=== PATIENT | female | born 1985 | race Hispanic/Latino ===

== ENCOUNTER 2016-08-08 10:46 | Inpatient (IN) | payer OTHER ==
[2016-08-08 10:54] VITALS: BMI 23.6
[2016-08-08] MEDS ORDERED: Sodium Chloride 0.9% 1,000 ML IV STA ×2 (11:16→12:32)
--- NOTE | 2016-08-08 11:27 | ED PDOC ---
HPI:Nausea, Vomiting, Diarrhea Time Seen by Provider: 08/08/16 10:59 Chief Complaint (Nursing): GI Problem Chief Complaint (Provider): Vomiting History Per: Patient History/Exam Limitations: no limitations Onset/Duration Of Symptoms: Days (Today) Current Symptoms Are (Timing): Still Present Additional Complaint(s): Vomiting multiple times. States last few had a blood tinge, mild. Also epigastric pain mild after vomiting, better now. Had a lot of alcohol and a sandwich yesterday. No back pain, lower abd pain, weakness, headaches, dysuria. No chest pain, dyspnea. No diarrhea. States she is very anxious and gets tx for it. Takes xanax as needed for it. Past Medical History Reviewed: Nursing Documentation, Vital Signs Vital Signs: Last Vital Signs Temp 97.8 F 08/08/16 10:53 Pulse 148 H 08/08/16 10:53 Resp 16 08/08/16 10:53 BP 125/75 08/08/16 10:53 Pulse Ox 99 08/08/16 10:53 - Medical History PMH: Anxiety - Surgical History Surgical History: No Surg Hx - Family History Family History: States: Unknown Family Hx - Living Arrangements Living Arrangements: With Family - Social History Current smoker - smoking cessation education provided: No Alcohol: None Drugs: Denies - Home Medications Home Medications: Ambulatory Orders Medication Instructions Recorded No Known Home Med 08/08/16 - Allergies Allergies/Adverse Reactions: Allergies Allergy/AdvReac Type Severity Reaction Status Date / Time No Known Allergies Allergy Verified 08/08/16 12:28 Review of Systems ROS Statement: Except As Marked, All Systems Reviewed And Found Negative Gastrointestinal: Positive for: Nausea, Vomiting, Abdominal Pain, Hematemesis ( trace) Physical Exam - Reviewed Nursing Documentation Reviewed: Yes Vital Signs Reviewed: Yes - Physical Exam Appears: Positive for: Non-toxic, No Acute Distress Head Exam: Positive for: ATRAUMATIC, NORMAL INSPECTION, NORMOCEPHALIC Skin: Positive for: Normal Color, Warm, DRY Eye Exam: Positive for: EOMI, Normal appearance, PERRL ENT: Positive for: Normal ENT Inspection Neck: Positive for: Normal, Painless ROM Cardiovascular/Chest: Positive for: Regular Rate, Rhythm Respiratory: Positive for: CNT, Normal Breath Sounds Gastrointestinal/Abdominal: Positive for: Normal Exam, Bowel Sounds, Soft. Negative for: Tenderness Back: Positive for: Normal Inspection. Negative for: L CVA Tenderness, R CVA Tenderness Extremity: Positive for: Normal ROM. Negative for: Tenderness, Pedal Edema Neurologic/Psych: Positive for: Alert, Oriented - Laboratory Results Result Diagrams: 08/08/16 11:30 08/08/16 11:30 Interpretation Of Abn Labs: 13.2 wbc, bun 31 - ECG O2 Sat by Pulse Oximetry: 99 Pulse Ox Interpretation: Normal - Progress ED Course And Treament: 1248: Stable. AAOx3. Elevated wbc mild, with bun elevated. Will give more fluids. Likely stress reaction. Pt. wants xanax. 1409: Stable. Feels no pain or vomit. Fu with pcp. Tolerated PO. Dehydration. Likely stress reaction with mild elevated wbc. Disposition - Clinical Impression Clinical Impression: Vomiting, Dehydration - Patient ED Disposition Is Patient to be Admitted: No Counseled Patient/Family Regarding: Studies Performed, Diagnosis, Need For Followup - Disposition Referrals: [facility] [Outside] - 08/09/16 Disposition: Routine/Home Disposition Time: 14:11 Condition: STABLE Additional Instructions: Return if not better in 3 days. Instructions: Dehydration (ED), Acute Nausea and Vomiting (ED)
[2016-08-08 11:42] LABS: BASO # 0.1 K/uL (0.0-0.2); BASO % 0.6 % (0.0-2.0); EOS # 0.1 K/uL (0.0-0.7); EOS % 0.5 % (0.0-4.0); HEMATOCRIT 33.3 % (34.0-47.0); LYMPH # 1.9 K/uL (1.0-4.3); LYMPH % 14.1 % (20.0-40.0); MEAN CELL VOLUME 94.9 fl (81.0-99.0); MEAN CORPUSCULAR HEMOGLOBIN 31.9 pg (27.0-31.0); MEAN CORPUSCULAR HGB CONC 33.6 g/dL (33.0-37.0); MEAN PLATELET VOLUME 7.3 fl (7.2-11.7); MONO # 0.8 K/uL (0.0-0.8); MONO % 5.9 % (0.0-10.0); NEUT # 10.4 K/uL (1.8-7.0); NEUT % 78.9 % (50.0-75.0); RED CELL DISTRIBUTION WIDTH 13.5 % (11.5-14.5); WHITE BLOOD COUNT 13.2 K/uL (4.8-10.8)
[2016-08-08 11:47] LABS: ALB/GLOB RATIO 1.5 (1.0-2.1); ALKALINE PHOSPHATASE 44 U/L (38-126); ALT/SGPT 34 U/L (9-52); AST/SGOT 34 U/L (14-36); BILIRUBIN,TOTAL 0.6 mg/dl (0.2-1.3); BLOOD UREA NITROGEN 31 mg/dl (7-17); CALCIUM 8.8 mg/dL (8.4-10.2); CARBON DIOXIDE 21 mmol/L (22-30); CHLORIDE 106 mmol/L (98-107); GFR AFRICAN-AMERICAN > 60; GLUCOSE,RANDOM 133 mg/dL (65-105); LIPASE 60 U/L (23-300); POTASSIUM 3.9 MMOL/L (3.6-5.0); SODIUM 140 mmol/l (132-148); TOTAL PROTEIN 6.4 G/DL (6.3-8.2)
[2016-08-08] MEDS ORDERED: Iohexol 240 (50 ml) ONE (14:21)
[2016-08-08] MEDS ORDERED: Iohexol 240 (50 ml) PO ONE (14:24)
[2016-08-08] MEDS: Pantoprazole 40 MG in Sodium Chloride 0.9% 100 ML IVPB SCH ×2 (14:48→19:42)
[2016-08-08] MEDS ORDERED: Sodium Chloride 0.9% 1,000 ML IV SCH (15:15)
--- NOTE | 2016-08-08 15:17 | CP.PCM.HP ---
History of Present Illness - History of Present Illness History of Present Illness: 30 yo female with no significant PMH came in complaining of abdominal pain accompanied with with 6 episodes of vomiting since this morning. Vomitus consisted of dark material. Also had one BM with dark stools. Patient claimed that she had been drinking heavily lately. Last night she had 5 shots of hard liquor. Pt denied chest pain or SOB. She appeared and admitted being very nervous about her condition. Present on Admission - Present on Admission Any Indicators Present on Admission: No History of DVT/PE: No History of Uncontrolled Diabetes: No Urinary Catheter: No Decubitus Ulcer Present: No Review of Systems - Review of Systems All systems: reviewed and no additional remarkable complaints except (aside from those mentioned above, 12 point system review were negative by me) Past Patient History - Past Social History Smoking Status: Never Smoked Chewing Tobacco Use: No Cigar Use: No Alcohol: > 2 Drinks/Day (recently have been drinking heavily) Drugs: Denies - CARDIAC Hx Cardiac Disorders: No - PULMONARY Hx Respiratory Disorders: No - NEUROLOGICAL Hx Neurological Disorder: No - HEENT Hx HEENT Problems: No - RENAL Hx Chronic Kidney Disease: No - ENDOCRINE/METABOLIC Hx Endocrine Disorders: No - HEMATOLOGICAL/ONCOLOGICAL Hx Blood Disorders: No - INTEGUMENTARY Hx Dermatological Problems: No - MUSCULOSKELETAL/RHEUMATOLOGICAL Hx Musculoskeletal Disorders: No - GASTROINTESTINAL Hx Gastrointestinal Disorders: No - GENITOURINARY/GYNECOLOGICAL Hx Genitourinary Disorders: No - PSYCHIATRIC Hx Anxiety: Yes - SURGICAL HISTORY Hx Surgeries: No - ANESTHESIA Hx Anesthesia: No Meds Allergies/Adverse Reactions: Allergies Allergy/AdvReac Type Severity Reaction Status Date / Time No Known Allergies Allergy Verified 08/08/16 12:28 Physical Exam - Constitutional Appears: No Acute Distress - Head Exam Head Exam: ATRAUMATIC - Eye Exam Eye Exam: absent: Scleral icterus - ENT Exam ENT Exam: Mucous Membranes Moist - Neck Exam Neck exam: Negative for: Meningismus - Respiratory Exam Respiratory Exam: absent: Rhonchi, Wheezes, Respiratory Distress - Cardiovascular Exam Cardiovascular Exam: REGULAR RHYTHM, +S1, +S2 - GI/Abdominal Exam GI & Abdominal Exam: Normal Bowel Sounds, Soft. absent: Guarding, Rebound, Tenderness - Rectal Exam Rectal Exam: Deferred - Extremities Exam Extremities exam: Negative for: calf tenderness, pedal edema - Back Exam Back exam: absent: tenderness - Neurological Exam Neurological exam: Alert, Oriented x3 - Psychiatric Exam Psychiatric exam: Anxious - Skin Skin Exam: Dry, Intact Results - Vital Signs Recent Vital Signs: Last Vital Signs Temp 97.8 F 08/08/16 10:53 Pulse 98 H 08/08/16 12:27 Resp 18 08/08/16 12:27 BP 125/75 08/08/16 10:53 Pulse Ox 99 08/08/16 14:12 - Labs Result Diagrams: 08/08/16 11:30 08/08/16 11:30 Assessment & Plan (1) GI (gastrointestinal bleed) Status: Acute Comment: place on observation in telemetry. keep NPO. IV hydration with NSS at 150cc/hr. continue Protonic drip 8mg/hr. Zofran 4mg IV q 6hrs prn for nausea/vomiting. Morphine 2mg IV q 6hrs prn for abdl pain. Ativan 1mg IV q 4hrs prn for agitation/anxiety. GI consult with Dr Merida (called by ER) (2) DVT prophylaxis Status: Acute Comment: venodyne boots when in bed
[2016-08-08] MEDS ORDERED: Iohexol 300 100 ML IJ ONE (17:34)
[2016-08-08] MEDS ORDERED: Sodium Chloride 0.9% 50 ML IV ONE (17:34)
[2016-08-08] MEDS: Sodium Chloride 0.9% 1,000 ML IV SCH (19:43)
--- NOTE | 2016-08-08 20:09 | CP.PCM.CON ---
History of Present Illness - History of Present Illness History of Present Illness: 30 yo female admitted with abdominal pain and then having vomiting early this morning. Was drinking alcohol heavily yesterday and took excedrin in the morning. Was vomiting very dark material initially and then noticed bloody emesis. Stools also lately have been very dark and were found to + contain occult blood. No prior bleeding history. Review of Systems - Constitutional Constitutional: absent: Chills - EENT Eyes: absent: Blind Spots Ears: absent: Decreased Hearing - Breasts Breasts: absent: Mass - Cardiovascular Cardiovascular: absent: Chest Pain - Respiratory Respiratory: absent: Cough - Gastrointestinal Gastrointestinal: As Per HPI - Genitourinary Genitourinary: absent: Change in Urinary Stream Past Patient History - Past Social History Smoking Status: Never Smoked Chewing Tobacco Use: No Cigar Use: No Alcohol: > 2 Drinks/Day (recently have been drinking heavily) Drugs: Denies - CARDIAC Hx Cardiac Disorders: No - PULMONARY Hx Respiratory Disorders: No - NEUROLOGICAL Hx Neurological Disorder: No - HEENT Hx HEENT Problems: No - RENAL Hx Chronic Kidney Disease: No - ENDOCRINE/METABOLIC Hx Endocrine Disorders: No - HEMATOLOGICAL/ONCOLOGICAL Hx Blood Disorders: No - INTEGUMENTARY Hx Dermatological Problems: No - MUSCULOSKELETAL/RHEUMATOLOGICAL Hx Musculoskeletal Disorders: No - GASTROINTESTINAL Hx Gastrointestinal Disorders: No - GENITOURINARY/GYNECOLOGICAL Hx Genitourinary Disorders: No - PSYCHIATRIC Hx Anxiety: Yes - SURGICAL HISTORY Hx Surgeries: No - ANESTHESIA Hx Anesthesia: No Meds Allergies/Adverse Reactions: Allergies Allergy/AdvReac Type Severity Reaction Status Date / Time No Known Allergies Allergy Verified 08/08/16 12:28 - Medications Medications: Current Medications Pantoprazole Sodium 40 mg/ (Sodium Chloride) 100 mls @ 20 mls/hr IVPB Q5H TONO PRN Reason: 8 MG/HR Last Admin: 08/08/16 19:42 Dose: 20 mls/hr Sodium Chloride (Sodium Chloride 0.9%) 1,000 mls @ 200 mls/hr IV .Q5H TONO Last Admin: 08/08/16 19:43 Dose: 200 mls/hr Lorazepam (Ativan) 1 mg IVP Q6 PRN PRN Reason: Agitation Last Admin: 08/08/16 18:59 Dose: 1 mg Morphine Sulfate (Morphine) 2 mg IVP Q6 PRN PRN Reason: abdominal pain Ondansetron HCl (Zofran Inj) 4 mg IVP Q6 PRN PRN Reason: Nausea/Vomiting Physical Exam - Head Exam Head Exam: ATRAUMATIC - Eye Exam Eye Exam: EOMI - Neck Exam Neck exam: Positive for: Normal Inspection - Respiratory Exam Respiratory Exam: Clear to Auscultation Bilateral - Cardiovascular Exam Cardiovascular Exam: REGULAR RHYTHM, +S1, +S2 - GI/Abdominal Exam GI & Abdominal Exam: Normal Bowel Sounds, Soft. absent: Tenderness Results - Vital Signs Recent Vital Signs: Last Vital Signs Temp 98.7 F 08/08/16 16:46 Pulse 104 H 08/08/16 16:46 Resp 18 08/08/16 16:46 BP 124/65 08/08/16 16:46 Pulse Ox 99 08/08/16 16:46 - Labs Result Diagrams: 08/08/16 11:30 08/08/16 11:30 Labs: Laboratory Results - last 24 hr 08/08/16 15:25 Alcohol, Quantitative < 10 - Imaging and Cardiology CT scan - abdomen Status: Report reviewed by me Assessment & Plan (1) GI (gastrointestinal bleed) Assessment and Plan: Had episode of GI bleeding and elevated BUN c/w hypolemia. Continue IV pantoprazole and IV hydration. I discussed with patient the benefit of upper endoscopy to diagnose the cause of the bleeding. She was unsure about having the procedure done and will decide by tomorrow. Status: Acute
[2016-08-08 21:44] LABS: MEAN CELL VOLUME 96.1 fl (81.0-99.0); MEAN CORPUSCULAR HGB CONC 33.3 g/dL (33.0-37.0); RED CELL DISTRIBUTION WIDTH 13.7 % (11.5-14.5); WHITE BLOOD COUNT 10.9 K/uL (4.8-10.8)
[2016-08-08 21:49] LABS: BLOOD UREA NITROGEN 28 mg/dl (7-17); CALCIUM 7.6 mg/dL (8.4-10.2); CARBON DIOXIDE 23 mmol/L (22-30); CHLORIDE 110 mmol/L (98-107); GFR AFRICAN-AMERICAN > 60; GLUCOSE,RANDOM 102 mg/dL (65-105); POTASSIUM 4.4 MMOL/L (3.6-5.0); SODIUM 141 mmol/l (132-148)
[2016-08-08 21:54] LABS: HEMATOCRIT 22.7 % (34.0-47.0)
[2016-08-09] MEDS: Pantoprazole 40 MG in Sodium Chloride 0.9% 100 ML IVPB SCH ×5 (00:30→23:20)
[2016-08-09 00:39] LABS: HEMATOCRIT 18.8 % (34.0-47.0); MEAN CELL VOLUME 95.8 fl (81.0-99.0); MEAN CORPUSCULAR HEMOGLOBIN 32.5 pg (27.0-31.0); RED CELL DISTRIBUTION WIDTH 13.8 % (11.5-14.5); WHITE BLOOD COUNT 9.9 K/uL (4.8-10.8)
[2016-08-09] MEDS: Sodium Chloride 0.9% 1,000 ML IV SCH ×4 (06:42→14:14)
[2016-08-09 07:32] LABS: BASO # 0.1 K/uL (0.0-0.2); BASO % 0.8 % (0.0-2.0); EOS # 0.1 K/uL (0.0-0.7); HEMATOCRIT 19.4 % (34.0-47.0); LYMPH # 2.7 K/uL (1.0-4.3); MEAN CORPUSCULAR HEMOGLOBIN 32.2 pg (27.0-31.0); MEAN CORPUSCULAR HGB CONC 34.4 g/dL (33.0-37.0); MEAN PLATELET VOLUME 7.8 fl (7.2-11.7); MONO # 1.1 K/uL (0.0-0.8); MONO % 10.9 % (0.0-10.0); NEUT # 6.1 K/uL (1.8-7.0); NEUT % 60.3 % (50.0-75.0); WHITE BLOOD COUNT 10.2 K/uL (4.8-10.8)
[2016-08-09 07:43] LABS: BLOOD UREA NITROGEN 29 mg/dl (7-17); CALCIUM 7.2 mg/dL (8.4-10.2); CARBON DIOXIDE 21 mmol/L (22-30); CHLORIDE 113 mmol/L (98-107); GFR AFRICAN-AMERICAN > 60; GLUCOSE,RANDOM 105 mg/dL (65-105); SODIUM 141 mmol/l (132-148)
[2016-08-09 07:58] LABS: MEAN CELL VOLUME 93.4 fl (81.0-99.0)
[2016-08-09] MEDS ORDERED: Desmopressin 4 mcg/ml Inj (10 ml) IV ONE (09:02)
--- NOTE | 2016-08-09 10:34 | CT ---
PROCEDURE: CT Abdomen and Pelvis with contrast HISTORY: abd pain COMPARISON: None. TECHNIQUE: Axial and reformatted coronal and sagittal CT images of the abdomen and pelvis were obtained after IV and oral contrast administration. Contrast dose: 95 cc of Omnipaque 300 Radiation dose: Total exam DLP = 9 a 0.28 mGy-cm. This CT exam was performed using one or more of the following dose reduction techniques: Automated exposure control, adjustment of the mA and/or kV according to patient size, and/or use of iterative reconstruction technique. FINDINGS: LOWER THORAX: Unremarkable. LIVER: Unremarkable. No gross lesion or ductal dilatation. GALLBLADDER AND BILE DUCTS: Unremarkable. PANCREAS: Unremarkable. No gross lesion or ductal dilatation. SPLEEN: Unremarkable. ADRENALS: Unremarkable. No mass. KIDNEYS AND URETERS: The right kidney collecting system is mildly dilated. No definite evidence of obstructing stone. VASCULATURE: Unremarkable. No aortic aneurysm. BOWEL: Unremarkable. No obstruction. No gross mural thickening. Mild constipation noted. APPENDIX: Normal appendix. PERITONEUM: Unremarkable. No free fluid. No free air. LYMPH NODES: Unremarkable. No enlarged lymph nodes. BLADDER: Unremarkable. REPRODUCTIVE: Unremarkable. BONES: No acute fracture. OTHER FINDINGS: None. IMPRESSION: Mildly dilated collecting system of the right kidney without evidence of obstructing stone. Correlate clinically for possible UTI/infectious process. No CT evidence of cholecystitis pancreatitis or appendicitis. Mild constipation.
[2016-08-09] MEDS ORDERED: Propofol 10 mg/ml Inj (20 ML) ONE (12:01)
[2016-08-09] MEDS ORDERED: Lactated Ringer's 500 ML IV ONE ×2 (12:13→12:19)
--- NOTE | 2016-08-09 14:16 | CP.PCM.PN ---
Subjective - Date & Time of Evaluation Date of Evaluation: 08/09/16 Time of Evaluation: 14:10 - Subjective Subjective: Pt seen and examined. Appeared tired and complaining of headache, post endoscopy. Had black tarry stool this morning Objective - Vital Signs/Intake and Output Vital Signs (last 24 hours): Temp Pulse Resp BP Pulse Ox 99 F 118 H 18 114/76 99 08/09/16 13:00 08/09/16 13:00 08/09/16 13:00 08/09/16 13:00 08/09/16 13:00 Intake and Output: 08/09/16 08/09/16 06:59 18:59 Intake Total 100 Balance 100 - Medications Medications: Current Medications Acetaminophen (Tylenol 325mg Tab) 650 mg PO Q4 PRN PRN Reason: Headache Pantoprazole Sodium 40 mg/ (Sodium Chloride) 100 mls @ 20 mls/hr IVPB Q5H TONO PRN Reason: 8 MG/HR Last Admin: 08/09/16 10:23 Dose: 20 mls/hr Sodium Chloride (Sodium Chloride 0.9%) 1,000 mls @ 100 mls/hr IV .Q10H TONO Stop: 08/10/16 14:16 Lorazepam (Ativan) 1 mg PO Q4 PRN PRN Reason: Anxiety Morphine Sulfate (Morphine) 2 mg IVP Q6 PRN PRN Reason: abdominal pain Ondansetron HCl (Zofran Inj) 4 mg IVP Q6 PRN PRN Reason: Nausea/Vomiting Last Admin: 08/09/16 09:31 Dose: 4 mg - Labs Labs: 08/09/16 05:45 08/09/16 05:45 PT 11.5 SECONDS (9.6-11.2) H 08/09/16 08:50 INR 1.11 (0.92-1.08) H 08/09/16 08:50 - Constitutional Appears: No Acute Distress - Head Exam Head Exam: ATRAUMATIC - Eye Exam Eye Exam: absent: Scleral icterus - ENT Exam ENT Exam: Mucous Membranes Moist - Neck Exam Neck Exam: absent: Meningismus - Respiratory Exam Respiratory Exam: absent: Rhonchi, Wheezes, Respiratory Distress - Cardiovascular Exam Cardiovascular Exam: Tachycardia, +S1, +S2 - GI/Abdominal Exam GI & Abdominal Exam: Soft. absent: Tenderness - Rectal Exam Rectal Exam: Deferred - Extremities Exam Extremities Exam: absent: Pedal Edema - Back Exam Back Exam: absent: tenderness - Neurological Exam Neurological Exam: Alert, Oriented x3 - Psychiatric Exam Psychiatric exam: Normal Affect - Skin Skin Exam: Dry, Intact Assessment and Plan (1) GI (gastrointestinal bleed) Status: Acute (2) DVT prophylaxis Status: Acute - Assessment and Plan (Free Text) Assessment: 30 yo female admitted because of abdominal pain accompanied with vomiting and moving bowel with black material positive for guiac. 1. GI bleed had black tarry stool early this morning endoscopy showed Malloery-Diaz without active bleeding continue Protonix drip start on clear liquid diet then advance if tolerated 2. Anemia secondary to blood loss received 2 units of PRBC yesterday Hgb went up from 6.4 to 6.7 after 1 unit of PRBC (blood drawn before the 2nd units was given) type and cross 2 more units transfuse if Hgb remained below 7
[2016-08-09 17:16] LABS: MEAN CELL VOLUME 91.6 fl (81.0-99.0); MEAN CORPUSCULAR HEMOGLOBIN 30.9 pg (27.0-31.0); MEAN CORPUSCULAR HGB CONC 33.7 g/dL (33.0-37.0); RED CELL DISTRIBUTION WIDTH 14.3 % (11.5-14.5); WHITE BLOOD COUNT 12.6 K/uL (4.8-10.8)
[2016-08-10] MEDS: Pantoprazole 40 MG in Sodium Chloride 0.9% 100 ML IVPB SCH (05:19)
[2016-08-10] MEDS: Sodium Chloride 0.9% 1,000 ML IV SCH (05:20)
[2016-08-10 07:08] LABS: HEMATOCRIT 26.5 % (34.0-47.0); MEAN CELL VOLUME 93.9 fl (81.0-99.0); MEAN CORPUSCULAR HEMOGLOBIN 31.8 pg (27.0-31.0); MEAN CORPUSCULAR HGB CONC 33.9 g/dL (33.0-37.0); RED CELL DISTRIBUTION WIDTH 14.1 % (11.5-14.5); WHITE BLOOD COUNT 9.2 K/uL (4.8-10.8)
[2016-08-10 07:22] LABS: BLOOD UREA NITROGEN 15 mg/dl (7-17); CALCIUM 7.4 mg/dL (8.4-10.2); CARBON DIOXIDE 22 mmol/L (22-30); CHLORIDE 111 mmol/L (98-107); GFR AFRICAN-AMERICAN > 60; GLUCOSE,RANDOM 84 mg/dL (65-105); POTASSIUM 3.7 MMOL/L (3.6-5.0); SODIUM 139 mmol/l (132-148)
[2016-08-10 07:52] VITALS: BP 113/74; PULSE 87; RESP 18; TEMP 98.1; O2SAT 99
[2016-08-10] MEDS ORDERED: Pantoprazole 40 mg EC Tab PO SCH (09:00)
--- NOTE | 2016-08-10 10:21 | CP.PCM.DIS ---
<Rolly Guillen - Last Filed: 08/10/16 11:06> Provider - Provider Date of Admission: 08/09/16 14:03 Attending physician: Bry Cavazos MD Time Spent in preparation of Discharge (in minutes): 35 Diagnosis - Discharge Diagnosis (1) Acute blood loss anemia Status: Acute Comment: Hgb at time of DC =9 (2) GI (gastrointestinal bleed) Status: Acute Comment: Endoscopy negative for active bleeding. (3) Nellie-Diaz tear Status: Acute Comment: diagnosed by endoscopy Hospital Course - Lab Results Lab Results: Most Recent Lab Values WBC 9.2 K/uL (4.8-10.8) 08/10/16 06:00 RBC 2.82 Mil/uL (3.80-5.20) L 08/10/16 06:00 Hgb 9.0 g/dL (12.0-16.0) L D 08/10/16 06:00 Hct 26.5 % (34.0-47.0) L 08/10/16 06:00 MCV 93.9 fl (81.0-99.0) D 08/10/16 06:00 MCH 31.8 pg (27.0-31.0) H 08/10/16 06:00 MCHC 33.9 g/dL (33.0-37.0) 08/10/16 06:00 RDW 14.1 % (11.5-14.5) 08/10/16 06:00 Plt Count 126 K/uL (130-400) L 08/10/16 06:00 MPV 7.8 fl (7.2-11.7) 08/09/16 05:45 Neut % (Auto) 60.3 % (50.0-75.0) 08/09/16 05:45 Lymph % (Auto) 27.0 % (20.0-40.0) 08/09/16 05:45 Bullock % (Auto) 10.9 % (0.0-10.0) H 08/09/16 05:45 Eos % (Auto) 1.0 % (0.0-4.0) 08/09/16 05:45 Baso % (Auto) 0.8 % (0.0-2.0) 08/09/16 05:45 Neut # 6.1 K/uL (1.8-7.0) 08/09/16 05:45 Lymph # 2.7 K/uL (1.0-4.3) 08/09/16 05:45 Bullock # 1.1 K/uL (0.0-0.8) H 08/09/16 05:45 Eos # 0.1 K/uL (0.0-0.7) 08/09/16 05:45 Baso # 0.1 K/uL (0.0-0.2) 08/09/16 05:45 PT 11.5 SECONDS (9.6-11.2) H 08/09/16 08:50 INR 1.11 (0.92-1.08) H 08/09/16 08:50 Sodium 139 mmol/l (132-148) 08/10/16 06:00 Potassium 3.7 MMOL/L (3.6-5.0) 08/10/16 06:00 Chloride 111 mmol/L (98-107) H 08/10/16 06:00 Carbon Dioxide 22 mmol/L (22-30) 08/10/16 06:00 Anion Gap 10 (10-20) 08/10/16 06:00 BUN 15 mg/dl (7-17) 08/10/16 06:00 Creatinine 0.6 mg/dL (0.7-1.2) L 08/10/16 06:00 Est GFR ( Amer) > 60 08/10/16 06:00 Est GFR (Non-Af Amer) > 60 08/10/16 06:00 Random Glucose 84 mg/dL (65-105) 08/10/16 06:00 Calcium 7.4 mg/dL (8.4-10.2) L 08/10/16 06:00 Total Bilirubin 0.6 mg/dl (0.2-1.3) 08/08/16 11:30 AST 34 U/L (14-36) 08/08/16 11:30 ALT 34 U/L (9-52) 08/08/16 11:30 Alkaline Phosphatase 44 U/L (38-126) 08/08/16 11:30 Total Protein 6.4 G/DL (6.3-8.2) 08/08/16 11:30 Albumin 3.9 g/dL (3.5-5.0) 08/08/16 11:30 Globulin 2.5 gm/dL (2.2-3.9) 08/08/16 11:30 Albumin/Globulin Ratio 1.5 (1.0-2.1) 08/08/16 11:30 Lipase 60 U/L (23-300) 08/08/16 11:30 Alcohol, Quantitative < 10 mg/dl (0-10) 08/08/16 15:25 Blood Type O POSITIVE 08/08/16 22:01 Blood Type Confirm O POSITIVE 08/08/16 23:10 Antibody Screen Negative 08/08/16 22:01 Crossmatch See Detail 08/08/16 22:01 BBK History Checked No verified bt 08/08/16 22:01 - Hospital Course Hospital Course: 30 y/o F with no significant PMHx was admitted to the hosp on 08/08/16 after several episodes of vomiting and hematemesis. Patient admitted drinking alcohol often lately and 2 days before the symptoms started she drank heavy. She decided to come to ED after repeated episodes of hematemesis and one episode of melena. Hgb at the time of admission was 11.2 and fecal occult blood test was positive. Patient was tachycardic at the time but rest of VS were WNL. While in the hospital she was transfused with 4 units of BRBC in total, endoscopy showed no active bleeding but presence of Nellie Diaz tears. Patient received 1 dose of Ddavp and Hgb today is =9. She was evaluated by Gi specialist who recommended , soft diet, F/U as outpatient and protonix PO 40mg BID for 1 week. Discharge Exam - Head Exam Head Exam: ATRAUMATIC - Eye Exam Eye Exam: PERRL. absent: Conjunctival injection - ENT Exam ENT Exam: Mucous Membranes Moist - Neck Exam Neck exam: Full Rom - Respiratory Exam Respiratory Exam: Clear to PA & Lateral, UNREMARKABLE - Cardiovascular Exam Cardiovascular Exam: REGULAR RHYTHM, RRR, +S1, +S2. absent: Bradycardia, Tachycardia - GI/Abdominal Exam GI & Abdominal Exam: Normal Bowel Sounds, Soft. absent: Tenderness - Extremities Exam Extremities exam: full ROM, normal capillary refill - Neurological Exam Neurological exam: Alert, Normal Gait, Oriented x3 - Psychiatric Exam Psychiatric exam: Normal Affect, Normal Mood - Skin Skin Exam: Intact, Warm Discharge Plan - Discharge Medications Prescriptions: Pantoprazole [Protonix EC Tab] 40 mg PO BID #30 ect - Follow Up Plan Condition: FAIR Disposition: HOME/ ROUTINE Patient education suggested?: Yes Instructions: Dehydration (ED), Acute Nausea and Vomiting (ED) Additional Instructions: ff up with Dr Merida in 1-2 wks Referrals: Darrell Merida MD [Staff Provider] - <Afau Butterfield - Last Filed: 08/10/16 12:00> Provider - Provider Date of Admission: 08/09/16 14:03 Attending physician: Bry Cavazos MD Hospital Course - Lab Results Lab Results: Most Recent Lab Values WBC 9.2 K/uL (4.8-10.8) 08/10/16 06:00 RBC 2.82 Mil/uL (3.80-5.20) L 08/10/16 06:00 Hgb 9.0 g/dL (12.0-16.0) L D 08/10/16 06:00 Hct 26.5 % (34.0-47.0) L 08/10/16 06:00 MCV 93.9 fl (81.0-99.0) D 08/10/16 06:00 MCH 31.8 pg (27.0-31.0) H 08/10/16 06:00 MCHC 33.9 g/dL (33.0-37.0) 08/10/16 06:00 RDW 14.1 % (11.5-14.5) 08/10/16 06:00 Plt Count 126 K/uL (130-400) L 08/10/16 06:00 MPV 7.8 fl (7.2-11.7) 08/09/16 05:45 Neut % (Auto) 60.3 % (50.0-75.0) 08/09/16 05:45 Lymph % (Auto) 27.0 % (20.0-40.0) 08/09/16 05:45 Bullock % (Auto) 10.9 % (0.0-10.0) H 08/09/16 05:45 Eos % (Auto) 1.0 % (0.0-4.0) 08/09/16 05:45 Baso % (Auto) 0.8 % (0.0-2.0) 08/09/16 05:45 Neut # 6.1 K/uL (1.8-7.0) 08/09/16 05:45 Lymph # 2.7 K/uL (1.0-4.3) 08/09/16 05:45 Bullock # 1.1 K/uL (0.0-0.8) H 08/09/16 05:45 Eos # 0.1 K/uL (0.0-0.7) 08/09/16 05:45 Baso # 0.1 K/uL (0.0-0.2) 08/09/16 05:45 PT 11.5 SECONDS (9.6-11.2) H 08/09/16 08:50 INR 1.11 (0.92-1.08) H 08/09/16 08:50 Sodium 139 mmol/l (132-148) 08/10/16 06:00 Potassium 3.7 MMOL/L (3.6-5.0) 08/10/16 06:00 Chloride 111 mmol/L (98-107) H 08/10/16 06:00 Carbon Dioxide 22 mmol/L (22-30) 08/10/16 06:00 Anion Gap 10 (10-20) 08/10/16 06:00 BUN 15 mg/dl (7-17) 08/10/16 06:00 Creatinine 0.6 mg/dL (0.7-1.2) L 08/10/16 06:00 Est GFR ( Amer) > 60 08/10/16 06:00 Est GFR (Non-Af Amer) > 60 08/10/16 06:00 Random Glucose 84 mg/dL (65-105) 08/10/16 06:00 Calcium 7.4 mg/dL (8.4-10.2) L 08/10/16 06:00 Total Bilirubin 0.6 mg/dl (0.2-1.3) 08/08/16 11:30 AST 34 U/L (14-36) 08/08/16 11:30 ALT 34 U/L (9-52) 08/08/16 11:30 Alkaline Phosphatase 44 U/L (38-126) 08/08/16 11:30 Total Protein 6.4 G/DL (6.3-8.2) 08/08/16 11:30 Albumin 3.9 g/dL (3.5-5.0) 08/08/16 11:30 Globulin 2.5 gm/dL (2.2-3.9) 08/08/16 11:30 Albumin/Globulin Ratio 1.5 (1.0-2.1) 08/08/16 11:30 Lipase 60 U/L (23-300) 08/08/16 11:30 Alcohol, Quantitative < 10 mg/dl (0-10) 08/08/16 15:25 Blood Type O POSITIVE 08/08/16 22:01 Blood Type Confirm O POSITIVE 08/08/16 23:10 Antibody Screen Negative 08/08/16 22:01 Crossmatch See Detail 08/08/16 22:01 BBK History Checked No verified bt 08/08/16 22:01 Attending/Attestation - Attestation I have personally seen and examined this patient.: Yes I have fully participated in the care of the patient.: Yes I have reviewed all pertinent clinical information, including history, physical exam and plan: Yes Notes (Text): 08/10/16 11:58 Pt seen and examined with resident , I discussed the case with Dr Guillen and agree with the resident's findings, plan of treatment as outlined on his Discharge Summary
--- NOTE | 2016-08-10 10:50 | CP.PCM.PN ---
Subjective - Date & Time of Evaluation Date of Evaluation: 08/10/16 Time of Evaluation: 08:30 - Subjective Subjective: Patient feeling well. No further active bleeding. Objective - Vital Signs/Intake and Output Vital Signs (last 24 hours): Temp Pulse Resp BP Pulse Ox 98.1 F 87 18 113/74 99 08/10/16 09:00 08/10/16 09:00 08/10/16 09:00 08/10/16 09:00 08/10/16 09:00 - Medications Medications: Current Medications Acetaminophen (Tylenol 325mg Tab) 650 mg PO Q4 PRN PRN Reason: Headache Last Admin: 08/09/16 14:13 Dose: 650 mg Sodium Chloride (Sodium Chloride 0.9%) 1,000 mls @ 100 mls/hr IV .Q10H TONO Stop: 08/10/16 14:16 Last Admin: 08/10/16 05:20 Dose: 100 mls/hr Lorazepam (Ativan) 1 mg PO Q4 PRN PRN Reason: Anxiety Last Admin: 08/09/16 22:20 Dose: 1 mg Morphine Sulfate (Morphine) 2 mg IVP Q6 PRN PRN Reason: abdominal pain Ondansetron HCl (Zofran Inj) 4 mg IVP Q6 PRN PRN Reason: Nausea/Vomiting Last Admin: 08/10/16 09:15 Dose: 4 mg Pantoprazole Sodium (Protonix Ec Tab) 40 mg PO BID [facility] Last Admin: 08/10/16 09:18 Dose: Not Given - Labs Labs: 08/10/16 06:00 08/10/16 06:00 PT 11.5 SECONDS (9.6-11.2) H 08/09/16 08:50 INR 1.11 (0.92-1.08) H 08/09/16 08:50 - Head Exam Head Exam: ATRAUMATIC - Eye Exam Eye Exam: EOMI - ENT Exam ENT Exam: Normal Exam - Neck Exam Neck Exam: Full ROM - Respiratory Exam Respiratory Exam: Clear to Ausculation Bilateral - Cardiovascular Exam Cardiovascular Exam: REGULAR RHYTHM - GI/Abdominal Exam GI & Abdominal Exam: Soft, Normal Bowel Sounds Assessment and Plan (1) GI (gastrointestinal bleed) Assessment & Plan: Upper endoscopy showed no active bleeding and evidence of Nellie-Diaz tear. Since patient blood type is O+ , DDAVP was given yesterday morning and since then there has been no further bleeding. Hgb segundo from 6.4 to 9 with 2 units of blood over night. Patient may be on soft diet and can be discharged on twice daily PPI for one week. Status: Acute
== END 2016-08-10 10:57 | disposition home or self-care (01) | DRG 369 ==
LOC: H.ER 10:46 → H.ERHOLD 14:19 → H.TEL 18:28 → OBSVTOIN 08-09 14:03
PROC: 30233N1 Transfusion of Nonautologous Red Blood Cells into Peripheral Vein, Percutaneous Approach (ICD-10-PCS; 2016-08-09)
PROC: 0DB48ZX Excision of Esophagogastric Junction, Via Natural or Artificial Opening Endoscopic, Diagnostic (ICD-10-PCS; principal; 2016-08-09 14:15)
DX: K22.6 Gastro-esophageal laceration-hemorrhage syndrome (principal); D62 Acute posthemorrhagic anemia; E86.0 Dehydration; F41.9 Anxiety disorder, unspecified